=== PATIENT | female | born 1985 | race Caucasian/White ===

== ENCOUNTER 2017-12-24 18:49 | Inpatient (IN) | payer OTHER ==
[2017-12-24] MEDS ORDERED: PANTOPRAZOLE 40 MG/10 ML VIAL IVP STA (19:16)
[2017-12-24] MEDS ORDERED: SODIUM CHLORIDE 0.9% 1,000 ML IV STA ×2 (19:16)
[2017-12-24] MEDS ORDERED: KETOROLAC 30 MG/ML 1 ML VIAL IVP STA (19:16)
[2017-12-24] MEDS: ONDANSETRON 4 MG/2 ML VIAL IVP STA (19:26)
[2017-12-24 19:32] LABS: Basophils % (A) 0 %; Eosinophils # (A) 0.3 k/uL (0-0.7); Eosinophils % (A) 4 %; HCT 42.6 % (34.0-46.0); HGB 14.7 gm/dL (11.4-16.0); Lymphocytes # (A) 1.7 k/uL (1.0-4.8); Lymphocytes % (A) 21 %; MCH 31.2 pg (25.0-35.0); MCHC 34.4 g/dL (31.0-37.0); MCV 90.7 fL (80.0-100.0); Mean Platelet Volume 8.1; Monocytes # (A) 0.4 k/uL (0-1.0); Monocytes % (A) 5 %; Neutrophils # (A) 5.3 k/uL (1.3-7.7); Neutrophils % (A) 68 %; Platelet Count 239 k/uL (150-450); RDW 12.3 % (11.5-15.5); WBC 7.8 k/uL (3.8-10.6)
[2017-12-24 19:38] LABS: Appearance,Urine Cloudy (Clear); Bilirubin,Urine Negative (Negative); Blood,Urine Negative (Negative); Color,Urine Yellow; Glucose,Urine (UA) Negative (Negative); Ketones,Urine Negative (Negative); Leukocyte Esterase,Urine Large (Negative); Mucus,Urine Occasional /hpf; Nitrite,Urine Negative (Negative); Protein,Urine Trace (Negative); RBC,Urine 1 /hpf (0-5); Specific Gravity,Urine 1.016 (1.001-1.035); Squamous Epithelial Cell,Urine 9 /hpf (0-4); WBC,Urine 2 /hpf (0-5)
[2017-12-24 19:41] LABS: Partial Thromboplastin Time 25.2 sec (22.0-30.0); Prothrombin Time 10.1 sec (9.0-12.0)
--- NOTE | 2017-12-24 19:49 | ED ---
Abdominal Pain HPI - General Source: patient, RN notes reviewed, old records reviewed Mode of arrival: ambulatory Limitations: no limitations <Kat Claros - Last Filed: 12/24/17 19:47> <Mickey Graff - Last Filed: 12/24/17 20:38> - General Chief Complaint: Abdominal Pain Stated Complaint: Abdominal pain Time Seen by Provider: 12/24/17 19:04 - History of Present Illness Initial Comments: Patient is a 32-year-old female presents to the emergency Department chief complaint of epigastric abdominal pain. Patient reports that the pain started at noon today. It radiates towards her back. Patient reports been no fever or chills. No nausea or vomiting. She relates she had some diarrhea today. She denies any urinary symptoms. Patient reports that it seems to be right underneath her diaphragm. No chest pain or shortness of breath. Patient denies any recent fever, chills, shortness of breath, chest pain, back pain, abdominal pain, nausea vomiting, numbness or tingling, dysuria or hematuria, constipation or diarrhea, headaches or visual changes, or any other current symptoms ( Kat Claros) - Related Data Home Medications Medication Instructions Recorded Confirmed No Known Home Medications [No 12/24/17 12/24/17 Known Home Medications] Allergies Allergy/AdvReac Type Severity Reaction Status Date / Time amoxicillin Allergy Rash/Hives Verified 12/24/17 19:22 Review of Systems ROS Other: All systems not noted in ROS Statement are negative. <Kat Claros - Last Filed: 12/24/17 19:47> ROS Other: All systems not noted in ROS Statement are negative. <Mickey Graff - Last Filed: 12/24/17 20:38> ROS Statement: Those systems with pertinent positive or pertinent negative responses have been documented in the HPI. Past Medical History Past Medical History: No Reported History History of Any Multi-Drug Resistant Organisms: None Reported Additional Past Surgical History / Comment(s): D&C Past Psychological History: No Psychological Hx Reported Smoking Status: Never smoker Past Alcohol Use History: None Reported Past Drug Use History: None Reported <Kat Claros - Last Filed: 12/24/17 19:47> General Exam Limitations: no limitations <Kat Claros - Last Filed: 12/24/17 19:47> <Mickey Graff - Last Filed: 12/24/17 20:38> - General Exam Comments Initial Comments: Well-appearing 32-year-old female. Alert. No acute distress. General: Well appearing, well nourished, in no distress. Oriented x 3, normal mood and affect . Ambulating without difficulty. Skin: Good turgor, no rash, unusual bruising or prominent lesions Hair: Normal texture and distribution. Pharynx: Mucosa non-inflamed, no tonsillar hypertrophy or exudate Neck: Supple, without lesions, bruits, or adenopathy, thyroid non-enlarged and non-tender Heart: No cardiomegaly or thrills; regular rate and rhythm, no murmur or gallop Lungs: Clear to auscultation and percussion Abdomen: Epigastric abdominal pain and right upper quadrant abdominal pain and palpation. Back: Spine normal without deformity or tenderness, no CVA tenderness Extremities: No amputations or deformities, cyanosis, edema or varicosities, peripheral pulses intact Musculoskeletal: Normal gait and station. No misalignment, asymmetry, crepitation, defects, tenderness, masses, effusions, decreased range of motion, instability, atrophy or abnormal strength or tone in the head, neck, spine, ribs , pelvis or extremities. Neurologic: CN 2-12 normal. Sensation to pain, touch, and proprioception normal. DTRs normal in upper and lower extremities. No pathologic reflexes. Psychiatric: Oriented X3, intact recent and remote memory, judgment and insight , normal mood and affect. (Kat Claros) Vital Signs 12/24/17 19:00 Temperature 98.0 F Pulse Rate 72 Respiratory 20 Rate Blood Pressure 165/87 O2 Sat by Pulse 100 Oximetry Medical Decision Making - Lab Data Result diagrams: 12/24/17 19:20 <Kat Claros - Last Filed: 12/24/17 19:47> - Lab Data Result diagrams: 12/24/17 19:20 12/24/17 19:20 - Radiology Data Radiology results: report reviewed (Ultrasound positive cholecystitis), image reviewed <Mickey Graff - Last Filed: 12/24/17 20:38> - Medical Decision Making 32-year-old female presents today chief complaint of epigastric abdominal pain. Radiates towards the middle of her back. Patient's labwork was obtained. Question gallbladder etiology. Ultrasound obtained. Patient's case will be transferred to Dr. Graff At 7:50 PM. (Kat Claros) 32 female the ER for evaluation of severe bowel pain, positive cholecystitis, will admit for surgical evaluation (Mickey Graff) - Lab Data Lab Results 12/24/17 12/24/17 12/24/17 Range/Units 19:20 19:20 19:20 WBC 7.8 (3.8-10.6) k/uL RBC 4.70 (3.80-5.40) m/uL Hgb 14.7 (11.4-16.0) gm/dL Hct 42.6 (34.0-46.0) % MCV 90.7 (80.0-100.0) fL MCH 31.2 (25.0-35.0) pg MCHC 34.4 (31.0-37.0) g/dL RDW 12.3 (11.5-15.5) % Plt Count 239 (150-450) k/uL Neutrophils % 68 % Lymphocytes % 21 % Monocytes % 5 % Eosinophils % 4 % Basophils % 0 % Neutrophils # 5.3 (1.3-7.7) k/uL Lymphocytes # 1.7 (1.0-4.8) k/uL Monocytes # 0.4 (0-1.0) k/uL Eosinophils # 0.3 (0-0.7) k/uL Basophils # 0.0 (0-0.2) k/uL PT 10.1 (9.0-12.0) sec INR 1.0 (<1.2) APTT 25.2 (22.0-30.0) sec Sodium 143 (137-145) mmol/L Potassium 4.1 (3.5-5.1) mmol/L Chloride 103 (98-107) mmol/L Carbon Dioxide 28 (22-30) mmol/L Anion Gap 12 mmol/L BUN 12 (7-17) mg/dL Creatinine 0.59 (0.52-1.04) mg/dL Est GFR (CKD-EPI)AfAm >90 (>60 ml/min/1.73 sqM) Est GFR (CKD-EPI)NonAf >90 (>60 ml/min/1.73 sqM) Glucose 103 H (74-99) mg/dL Calcium 9.1 (8.4-10.2) mg/dL Total Bilirubin 1.0 (0.2-1.3) mg/dL AST 118 H (14-36) U/L ALT 74 H (9-52) U/L Alkaline Phosphatase 139 H (38-126) U/L Total Protein 7.2 (6.3-8.2) g/dL Albumin 4.3 (3.5-5.0) g/dL Amylase 46 (30-110) U/L Lipase 103 (23-300) U/L Urine Color Urine Appearance (Clear) Urine pH (5.0-8.0) Ur Specific Occidental (1.001-1.035) Urine Protein (Negative) Urine Glucose (UA) (Negative) Urine Ketones (Negative) Urine Blood (Negative) Urine Nitrite (Negative) Urine Bilirubin (Negative) Urine Urobilinogen (<2.0) mg/dL Ur Leukocyte Esterase (Negative) Urine RBC (0-5) /hpf Urine WBC (0-5) /hpf Ur Squamous Epith Cells (0-4) /hpf Urine Mucus (None) /hpf Urine HCG, Qual (Not Detectd) 12/24/17 12/24/17 Range/Units 19:20 19:20 WBC (3.8-10.6) k/uL RBC (3.80-5.40) m/uL Hgb (11.4-16.0) gm/dL Hct (34.0-46.0) % MCV (80.0-100.0) fL MCH (25.0-35.0) pg MCHC (31.0-37.0) g/dL RDW (11.5-15.5) % Plt Count (150-450) k/uL Neutrophils % % Lymphocytes % % Monocytes % % Eosinophils % % Basophils % % Neutrophils # (1.3-7.7) k/uL Lymphocytes # (1.0-4.8) k/uL Monocytes # (0-1.0) k/uL Eosinophils # (0-0.7) k/uL Basophils # (0-0.2) k/uL PT (9.0-12.0) sec INR (<1.2) APTT (22.0-30.0) sec Sodium (137-145) mmol/L Potassium (3.5-5.1) mmol/L Chloride (98-107) mmol/L Carbon Dioxide (22-30) mmol/L Anion Gap mmol/L BUN (7-17) mg/dL Creatinine (0.52-1.04) mg/dL Est GFR (CKD-EPI)AfAm (>60 ml/min/1.73 sqM) Est GFR (CKD-EPI)NonAf (>60 ml/min/1.73 sqM) Glucose (74-99) mg/dL Calcium (8.4-10.2) mg/dL Total Bilirubin (0.2-1.3) mg/dL AST (14-36) U/L ALT (9-52) U/L Alkaline Phosphatase (38-126) U/L Total Protein (6.3-8.2) g/dL Albumin (3.5-5.0) g/dL Amylase (30-110) U/L Lipase (23-300) U/L Urine Color Yellow Urine Appearance Cloudy H (Clear) Urine pH 7.0 (5.0-8.0) Ur Specific Occidental 1.016 (1.001-1.035) Urine Protein Trace H (Negative) Urine Glucose (UA) Negative (Negative) Urine Ketones Negative (Negative) Urine Blood Negative (Negative) Urine Nitrite Negative (Negative) Urine Bilirubin Negative (Negative) Urine Urobilinogen 6.0 (<2.0) mg/dL Ur Leukocyte Esterase Large H (Negative) Urine RBC 1 (0-5) /hpf Urine WBC 2 (0-5) /hpf Ur Squamous Epith Cells 9 H (0-4) /hpf Urine Mucus Occasional H (None) /hpf Urine HCG, Qual Not Detected (Not Detectd) Disposition <Kat Claros - Last Filed: 12/24/17 19:47> <Mickey Graff - Last Filed: 12/24/17 20:38> Clinical Impression: Abdominal pain, Acute cholecystitis Disposition: ADMITTED IP TO THIS HOSP Condition: Fair Referrals: Dominique Hope DO [Primary Care Provider] - 1-2 days
[2017-12-24 19:54] LABS: ALT 74 U/L (9-52); AST 118 U/L (14-36); Albumin 4.3 g/dL (3.5-5.0); Alkaline Phosphatase 139 U/L (38-126); Amylase 46 U/L (30-110); Anion Gap 12 mmol/L; Blood Urea Nitrogen 12 mg/dL (7-17); Calcium 9.1 mg/dL (8.4-10.2); Carbon Dioxide 28 mmol/L (22-30); Chloride 103 mmol/L (98-107); Glucose 103 mg/dL (74-99); Lipase 103 U/L (23-300); Potassium 4.1 mmol/L (3.5-5.1); Sodium 143 mmol/L (137-145); Total Protein 7.2 g/dL (6.3-8.2)
[2017-12-24] MEDS ORDERED: metroNIDAZOLE-NS PMX 500 MG in SALINE 1 100ML.BAG IVPB STA (20:37)
[2017-12-24] MEDS ORDERED: LEVOFLOXACIN 750MG-D5W PMX 750 MG in DEXTROSE/WATER 1 150ML.BAG IVPB STA (20:37)
--- NOTE | 2017-12-24 20:53 | US ---
EXAMINATION TYPE: US gallbladder DATE OF EXAM: 12/24/2017 COMPARISON: NONE CLINICAL HISTORY: Pain. Intermittent upper abdomen and back pain and nausea x couple months, SOB EXAM MEASUREMENTS: Liver Length: 14.7 cm Gallbladder Wall: 0.3 cm CBD: 0.6 cm Right Kidney: 11.3 x 5.0 x 4.9 cm Difficult and limited study due to patient body habitus Pancreas: visualized portions wnl, limited by overlying midline bowel gas Liver: visualized portions appear to have a course echotexture, scanned intercostally, limited by ri b shadowing Gallbladder: The gallbladder is not distended. 1.7cm echogenic shadowing focus, the thickness of the gallbladder wall measures less than 3 mm . Evidence for sonographic Mcdonough's sign: yes CBD: measures less than 6 mm caliber Right Kidney: visualized portions wnl, limited by rib shadowing and overlying bowel gas IMPRESSION: 1. POSITIVE FOR CHOLELITHIASIS. 2. COMMON DUCT TOP NORMAL CALIBER. 3. OVERALL IMPRESSION IS NEGATIVE FOR CHOLECYSTITIS.
--- NOTE | 2017-12-24 21:37 | XR ---
EXAMINATION TYPE: XR KUB 2 views DATE OF EXAM: 12/24/2017 CLINICAL HISTORY: Upper abdominal pain TECHNIQUE: 2 upright views were obtained of the abdomen and pelvis COMPARISON: April 2009 FINDINGS: The visualized lung bases and pleural spaces are negative. There is no pneumoperitoneum. No pneumatosis. Bowel gas pattern is normal. Bones and soft tissues are unremarkable. IMPRESSION: Negative examination.
[2017-12-24 21:56] VITALS: BMI 35.3
[2017-12-25] MEDS: metroNIDAZOLE-NS PMX 500 MG in SALINE 1 100ML.BAG IVPB SCH ×3 (06:04→21:58)
[2017-12-25] MEDS ORDERED: ACETAMINOPHEN IV (For NPO) 1,000 MG in EMPTY BAG 1 BAG IVPB ONE (07:20)
[2017-12-25] MEDS ORDERED: HEPARIN SODIUM,PORCINE 5,000 UNIT/ML 1 ML VIAL SQ STA (07:27)
[2017-12-25 08:42] LABS: Basophils % (A) 0 %; Eosinophils # (A) 0.5 k/uL (0-0.7); Eosinophils % (A) 8 %; HCT 41.7 % (34.0-46.0); Lymphocytes # (A) 1.6 k/uL (1.0-4.8); Lymphocytes % (A) 28 %; MCH 31.1 pg (25.0-35.0); MCHC 33.5 g/dL (31.0-37.0); MCV 92.6 fL (80.0-100.0); Mean Platelet Volume 7.9; Monocytes # (A) 0.3 k/uL (0-1.0); Monocytes % (A) 6 %; Neutrophils # (A) 3.3 k/uL (1.3-7.7); Neutrophils % (A) 58 %; Platelet Count 199 k/uL (150-450); RDW 12.4 % (11.5-15.5); WBC 5.7 k/uL (3.8-10.6)
[2017-12-25 09:01] LABS: ALT 125 U/L (9-52); AST 91 U/L (14-36); Albumin 3.6 g/dL (3.5-5.0); Alkaline Phosphatase 129 U/L (38-126); Anion Gap 8 mmol/L; Blood Urea Nitrogen 8 mg/dL (7-17); Calcium 8.6 mg/dL (8.4-10.2); Carbon Dioxide 24 mmol/L (22-30); Chloride 110 mmol/L (98-107); Glucose 99 mg/dL (74-99); Potassium 4.2 mmol/L (3.5-5.1); Sodium 142 mmol/L (137-145); Total Bilirubin 0.9 mg/dL (0.2-1.3); Total Protein 6.1 g/dL (6.3-8.2)
--- NOTE | 2017-12-25 11:00 | P.HPIM ---
History of Present Illness H&P Date: 12/25/17 Chief Complaint: Abdominal pain Elise Abbasi is a 32-year-old female patient of Dr. Dominique Hope who presented to [facility] on 12/24/2017 with a chief complaint of abdominal pain patient describes a severe epigastric pain radiating to her back associated with nausea but no vomiting she states that she had her symptoms all day long, she stated she had previous similar short episodes in the past but this time the pain was more severe and more prolonged she decided to come to emergency room. She was evaluated in the ER, vital exam reveals patient was afebrile blood pressure was slightly elevated on presentation physical exam revealed abdominal pain and tenderness especially in the right upper quadrant laboratory data were unremarkable suspicious for possible urinary tract infection with positive leukocyte esterase. Abdomen ultrasound was positive for cholelithiasis was large stone measuring 1.7 cm in the gallbladder sonographic Mcdonough sign was positive common bile duct was normal at less then 6 mm caliber. Patient was admitted under Dr. Cramer service and is scheduled for cholecystectomy today. Medical consultation was requested for management while hospitalized. Past medical history: Patient follows with Dr. Dominique Hope in the outpatient setting she denies any significant medical history, at this time she does not take any prescriptions medications, she states that she had gestational diabetes when she was , she states that she was diagnosed with asthma in the remote past but currently she is asymptomatic and does not use any inhalers, her past surgical history is significant for D&C otherwise she denies any surgeries. Social history: Patient does not smoke drink alcohol or use any kind of illicit drugs. Depression screening was done by nursing staff and was positive when questioned further patient stated that she feels that she has depression she will be started on antidepressant post operative. 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 History of Any Multi-Drug Resistant Organisms: None Reported Additional Past Surgical History / Comment(s): D&C Past Anesthesia/Blood Transfusion Reactions: No Reported Reaction Past Psychological History: No Psychological Hx Reported Smoking Status: Never smoker Past Alcohol Use History: None Reported Past Drug Use History: None Reported - Past Family History Mother Family Medical History: Cancer, Hypertension Additional Family Medical History / Comment(s): breast ca Father Family Medical History: Hypertension Medications and Allergies Home Medications Medication Instructions Recorded Confirmed Type No Known Home Medications [No 12/24/17 12/24/17 History Known Home Medications] Allergies Allergy/AdvReac Type Severity Reaction Status Date / Time amoxicillin Allergy Rash/Hives Verified 12/24/17 19:22 Physical Exam Vitals: Vital Signs Temp Pulse Pulse Pulse Resp BP BP 12/25/17 08:00 60 12/25/17 07:30 97.8 F 60 16 130/71 12/25/17 04:01 97.5 F L 75 18 124/90 12/24/17 21:40 97.6 F 76 18 143/91 12/24/17 20:41 97.3 F L 78 18 134/82 12/24/17 19:00 98.0 F 72 20 165/87 Pulse Ox 12/25/17 08:00 12/25/17 07:30 96 12/25/17 04:01 96 12/24/17 21:40 100 12/24/17 20:41 99 12/24/17 19:00 100 Intake and Output 12/24/17 12/25/17 12/25/17 22:59 06:59 14:59 Output Total 800 Balance -800 Output: Urine 800 Other: # Voids 1 Weight 99.2 kg In general patient is alert and oriented 3 in no apparent distress HEENT head normocephalic and atraumatic Neck is supple no JVD no goiter no lymphadenopathy Chest exam is clear to auscultation no crackles no wheezing Cardiac exam reveals regular heart sounds no gallops no murmurs Abdomen is soft with mild tenderness in the epigastric and right upper quadrant area no organomegaly no palpable masses Extremity exam reveals no edema no cyanosis or clubbing Results CBC & Chem 7: 12/25/17 08:31 12/25/17 08:31 Labs: Abnormal Lab Results - Last 24 Hours (Table) 12/24/17 12/24/17 12/25/17 Range/Units 19:20 19:20 08:31 Chloride 110 H (98-107) mmol/L Glucose 103 H (74-99) mg/dL AST 118 H 91 H (14-36) U/L ALT 74 H 125 H (9-52) U/L Alkaline Phosphatase 139 H 129 H (38-126) U/L Total Protein 6.1 L (6.3-8.2) g/dL Urine Appearance Cloudy H (Clear) Urine Protein Trace H (Negative) Ur Leukocyte Esterase Large H (Negative) Ur Squamous Epith Cells 9 H (0-4) /hpf Urine Mucus Occasional H (None) /hpf Thrombosis Risk Factor Assmnt - Choose All That Apply Any of the Below Risk Factors Present?: Yes Each Factor Represents 1 point: Obesity (BMI >25) Thrombosis Risk Factor Assessment Total Risk Factor Score: 1 Thrombosis Risk Factor Assessment Level: Low Risk Assessment and Plan Plan: #1 cholecystitis with cholelithiasis #2 history of gestational diabetes with normal glucose level at this time #3 remote history of asthma stable at this time #4 evidence of depression on nursing staff screening and further questioning. At this time patient is cleared to proceed with surgery Will follow during this admission for medical management Plan to start on Lexapro in a.m.
--- NOTE | 2017-12-25 11:55 | P.HPADDEND ---
H&P Addendum H&P Addendum Date: 12/25/17 Ultrasound of the abdomen reviewed consistent with large symptomatic gallstones and cholecystitis. Will proceed with robotic cholecystectomy.
[2017-12-25] MEDS: SODIUM CHLORIDE 0.9% 1,000 ML IV SCH ×2 (12:25→19:32)
--- NOTE | 2017-12-25 13:53 | P.GSCN ---
History of Present Illness Consult date: 12/25/17 History of present illness: Very pleasant 32-year-old female presented on the day of admission to the emergency room to be evaluated for chief complaint of developing severe epigastric pain radiating across the upper back. Patient stated had a nausea sensation but did not vomit. states she has been experiencing this type pain for the past several months but noted over the last several weeks the incident of having epigastric pain became more frequent. The current episode that prompted the emergency room visit was intolerable. Patient decided to come into the emergency room to be evaluated for the above-mentioned symptoms. Patient did have an ultrasound of the abdomen done in the emergency room was positive for cholelithiasis patient large gallstone measuring 1.7 noted. Common bile duct normal. Subsequently the patient was admitted under the services of the attending. Patient has no significant past medical history. No significant surgical history except for a D&C. Depression screening was done by the nursing staff was positive patient states she feels depressed. Consult for medical management has been obtained. Postoperative patient will be started on an antidepressive drug per recommendations of medicine with the plan the patient will follow-up with her primary care provider Dr. 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 History of Any Multi-Drug Resistant Organisms: None Reported Additional Past Surgical History / Comment(s): D&C Past Anesthesia/Blood Transfusion Reactions: No Reported Reaction Past Psychological History: No Psychological Hx Reported Smoking Status: Never smoker Past Alcohol Use History: None Reported Past Drug Use History: None Reported - Past Family History Mother Family Medical History: Cancer, Hypertension Additional Family Medical History / Comment(s): breast ca Father Family Medical History: Hypertension Medications and Allergies Home Medications Medication Instructions Recorded Confirmed Type No Known Home Medications [No 12/24/17 12/24/17 History Known Home Medications] Allergies Allergy/AdvReac Type Severity Reaction Status Date / Time amoxicillin Allergy Rash/Hives Verified 12/24/17 19:22 Surgical - Exam Vital Signs Temp Pulse Resp BP Pulse Ox 98.0 F 72 20 165/87 100 12/24/17 19:00 12/24/17 19:00 12/24/17 19:00 12/24/17 19:00 12/24/17 19:00 GENERAL APPEARANCE: 32-year-old female patient is alert, oriented, in no acute distress. VITAL SIGNS: Reviewed HEENT: Head is normocephalic and atraumatic. Pupils are equal and reactive. The nares are patent. Oropharynx is clear without lesions. NECK: Supple without lymphadenopathy. Traches midline. HEART: S1, S2. Regular rate and rhythm. Denying chest pain no murmur LUNGS: No crackles or wheezes are heard. Adequate air movement bilaterally ABDOMEN: Soft, mild tenderness right upper quadrant nondistended with good bowel sounds. No peritoneal signs. No palpable organomegaly or masses. EXTREMITIES: Normal skin color and turgor. No cyanosis, rash, ulceration, clubbing or edema. Radial pedal pulses are 2/4 bilaterally. NEUROLOGICAL: No focal deficits. Strength and sensation are grossly intact. Results - Labs 12/25/17 08:31 12/25/17 08:31 Abnormal Lab Results - Last 24 Hours (Table) 12/24/17 12/24/17 12/25/17 Range/Units 19:20 19:20 08:31 Chloride 110 H (98-107) mmol/L Glucose 103 H (74-99) mg/dL AST 118 H 91 H (14-36) U/L ALT 74 H 125 H (9-52) U/L Alkaline Phosphatase 139 H 129 H (38-126) U/L Total Protein 6.1 L (6.3-8.2) g/dL Urine Appearance Cloudy H (Clear) Urine Protein Trace H (Negative) Ur Leukocyte Esterase Large H (Negative) Ur Squamous Epith Cells 9 H (0-4) /hpf Urine Mucus Occasional H (None) /hpf Diabetes panel 12/24/17 12/25/17 Range/Units 19:20 08:31 Sodium 143 142 (137-145) mmol/L Potassium 4.1 4.2 (3.5-5.1) mmol/L Chloride 103 110 H (98-107) mmol/L Carbon Dioxide 28 24 (22-30) mmol/L BUN 12 8 (7-17) mg/dL Creatinine 0.59 0.60 (0.52-1.04) mg/dL Glucose 103 H 99 (74-99) mg/dL Calcium 9.1 8.6 (8.4-10.2) mg/dL AST 118 H 91 H (14-36) U/L ALT 74 H 125 H (9-52) U/L Alkaline Phosphatase 139 H 129 H (38-126) U/L Total Protein 7.2 6.1 L (6.3-8.2) g/dL Albumin 4.3 3.6 (3.5-5.0) g/dL Calcium panel 12/24/17 12/25/17 Range/Units 19:20 08:31 Calcium 9.1 8.6 (8.4-10.2) mg/dL Albumin 4.3 3.6 (3.5-5.0) g/dL Pituitary panel 12/24/17 12/25/17 Range/Units 19:20 08:31 Sodium 143 142 (137-145) mmol/L Potassium 4.1 4.2 (3.5-5.1) mmol/L Chloride 103 110 H (98-107) mmol/L Carbon Dioxide 28 24 (22-30) mmol/L BUN 12 8 (7-17) mg/dL Creatinine 0.59 0.60 (0.52-1.04) mg/dL Glucose 103 H 99 (74-99) mg/dL Calcium 9.1 8.6 (8.4-10.2) mg/dL Adrenal panel 12/24/17 12/25/17 Range/Units 19:20 08:31 Sodium 143 142 (137-145) mmol/L Potassium 4.1 4.2 (3.5-5.1) mmol/L Chloride 103 110 H (98-107) mmol/L Carbon Dioxide 28 24 (22-30) mmol/L BUN 12 8 (7-17) mg/dL Creatinine 0.59 0.60 (0.52-1.04) mg/dL Glucose 103 H 99 (74-99) mg/dL Calcium 9.1 8.6 (8.4-10.2) mg/dL Total Bilirubin 1.0 0.9 (0.2-1.3) mg/dL AST 118 H 91 H (14-36) U/L ALT 74 H 125 H (9-52) U/L Alkaline Phosphatase 139 H 129 H (38-126) U/L Total Protein 7.2 6.1 L (6.3-8.2) g/dL Albumin 4.3 3.6 (3.5-5.0) g/dL Assessment and Plan Assessment: Impression Present on admission right upper quadrant pain suspect due to acute cholecystitis with cholelithiasis Obesity BMI 35 Depressive disorder per nursing staff screening Gestational diabetes with a current normal glucose Mildly elevated AST and ALT Plan Nothing by mouth scheduled for a lap cholecystectomy today Pain control DVT and GI prophylaxis IV Flagyl as ordered IV fluid for hydration Consult medical service for medical management Medicine plans on starting Lexapro in the morning for depression defer to The above impression and plan of care have been discussed and directed by signing physician. Annelise Sainz nurse practitioner acting as scribe for signing physician.
[2017-12-25] MEDS ORDERED: IV FLUID CONTINUATION 1,000 ML IV ONE (13:57)
[2017-12-25] MEDS ORDERED: DEXAMETHASONE SOD PHOSPHATE 10 MG/ML 1 ML VIAL IV ONE (14:18)
[2017-12-25] MEDS: ONDANSETRON 4 MG/2 ML VIAL IVP STA (14:18)
[2017-12-25] MEDS ORDERED: LACTATED RINGERS 1,000 ML IV ONE (15:03)
[2017-12-25] MEDS ORDERED: LIDOCAINE 1% 20 ML VIAL (10MG/ML) FOR IV START INTRADERMA ONE (15:04)
[2017-12-25] MEDS ORDERED: fentaNYL (PF) 50 MCG/ML 2 ML AMP ONE (16:10)
[2017-12-25] MEDS ORDERED: PROPOFOL 10 MG/ML 20 ML VIAL IV ONE (16:10)
[2017-12-25] MEDS ORDERED: LIDOCAINE 1% INJ 10MG/ML (20 ML MDV) ONE (16:10)
[2017-12-25] MEDS ORDERED: INDOCYANINE GREEN 25 MG VIAL IV ONE (16:10)
[2017-12-25] MEDS ORDERED: NEOSTIGMINE 1 MG/ML 10 ML VIAL ONE (16:10)
[2017-12-25] MEDS ORDERED: MIDAZOLAM 2 MG/2 ML VIAL ONE (16:10)
[2017-12-25] MEDS ORDERED: ROCURONIUM BROMIDE 10 MG/ML 10 ML VIAL IV ONE (16:10)
[2017-12-25] MEDS ORDERED: SUCCINYLCHOLINE CHLORIDE 100 MG/5 ML SYR IV ONE (16:10)
[2017-12-25] MEDS ORDERED: GLYCOPYRROLATE 0.2 MG/ML 2 ML VIAL ONE (16:10)
[2017-12-25] MEDS ORDERED: BUPIVACAINE (PF) 0.5% 30 ML VIAL SQ ONE (16:47)
[2017-12-25] MEDS ORDERED: ONDANSETRON 4 MG/2 ML VIAL IVP PRN (17:46)
[2017-12-25] MEDS ORDERED: NALOXONE 0.4 MG/ML 1 ML VIAL IV PRN (17:46)
[2017-12-25] MEDS ORDERED: METOCLOPRAMIDE 5 MG/ML 2 ML VIAL IVP PRN (17:46)
--- NOTE | 2017-12-25 17:46 | P.OP ---
Date of Procedure: 12/25/17 Description of Procedure: SURGEON: ALAN ROMEO MD WAREHOUSE CONSULTANT: STEPHANIE BARTHOLOMEW PREOPERATIVE DIAGNOSES: 1. Acute cholecystitis due to cystic duct obstruction 2. Right upper quadrant abdominal pain. 3. Gastroesophageal reflux disease. 4. Morbid obesity due to excess calories, BMI 35.3 5. Elevated liver enzymes, ALT, AST, alkaline phosphatase POSTOPERATIVE DIAGNOSES: 1. Acute cholecystitis due to cystic duct obstruction 2. Right upper quadrant abdominal pain. 3. Gastroesophageal reflux disease. 4. Morbid obesity due to excess calories, BMI 35.3 5. Elevated liver enzymes, ALT, AST, alkaline phosphatase 6. Fatty liver with hepatomegaly OPERATION: Robotic-assisted da Yun Xi laparoscopic cholecystectomy, multiport with FIREFLY ESTIMATED BLOOD LOSS: 10 mL. SPECIMENS REMOVED: Gallbladder. COMPLICATIONS: None. OPERATIVE FINDINGS: 1. Acute on chronic cholecystitis with large over 2 cm gallstone 2. Fatty liver with hepatomegaly INDICATIONS: The patient is a 32-year-old female who presents with acute cholelcystitis. Surgical intervention with a laparoscopic cholecystectomy was described at length including injury to the biliary tree, bleeding, infection, need for further surgery. Informed consent was obtained. Robotic assisted laparoscopic approach was described. Benefits and risks of the procedure including but not limited to bleeding, infection, injury to the biliary tree was described. Informed consent was obtained. DESCRIPTION OF PROCEDURE: Patient was brought to the operating room, placed in supine position. After general induction, the abdomen had been prepped and draped in standard sterile fashion. The robotic da Yun XI system was primed. After a timeout protocol was performed, the patient had been prepped and draped in standard sterile fashion. The patient was injected with indocyanine green. The robot was docked along the left lateral abdomen. The patient was repositioned in reverse Trendelenburg position. Please note prior to docking of the robot; however, a 5 mm 0 degrees laparoscopic trocar entry was performed along the left upper quadrant. Next, two 8 mm robotic ports were placed along the right upper abdomen. The camera 8-mm port was maintained along the epigastrium. Another 8 mm port was placed along the left upper abdominal wall after exchanging the 5 mm port. Please note that the ports were placed at least 10 to 15 cm away from the target anatomy of the gallbladder. Using a grasper for arm 3, a grasper for arm 2, including hook cautery for arm 1 , the robotic system was docked and primed as described. Instruments were interchanged by the assistant warehouse manager including hook cautery, Bovie cautery and clip appliers. I had sat at the console. Adhesions were identified along the infundibulum of the gallbladder and addressed using hook cautery. The gallbladder fundus was retracted over the dome of the liver. Initial attention was brought to the infundibulum which was gently retracted in the inferior lateral approach. Using a grasper, the cystic duct including the cystic artery was carefully skeletonized. FIREFLY was used to identify the cystic artery and cystic structures. Using a clip provider education specialist 2 large PLASTIC clips were placed proximally, and 1 clip was placed distally along the cystic duct and then cauterized with the cautery. Again care was taken to avoid any injury to the biliary tree as the common bile duct was clearly visualized during this portion of dissection. Next, the cystic artery was cauterized. Electro-Bovie cautery was used to remove the gallbladder from the hepatic fossa. Hemostasis was checked and found to be adequate. The robot was undocked. I re-scrubbed into the case. Using a 10 mm Endo Catch bag via the left upper quadrant incision, the specimen was removed from the abdominal cavity. All pneumoperitoneum instruments were evacuated from the abdominal cavity. The incisions were reapproximated using 4-0 Monocryl in an interrupted subcuticular fashion. Clark-Maryuri and 0 Vicryl is used to close the left upper quadrant port site. Please note along the trocar sites, local anesthetic was placed as a field block prior to insertion of all instruments. Dermabond was applied to the skin. At the end of the procedure needle, sponge, and instrument count had been verified correct by the surgical technologist. The patient was transferred to postanesthesia care unit in stable condition. Intraoperative films were shared with the patient's family who were very pleased with the level of care. Console time 19 minutes
[2017-12-25] MEDS: fentaNYL (PF) 50 MCG/ML 2 ML AMP IV ONE ×2 (18:01→18:15)
[2017-12-25] MEDS ORDERED: HYDROmorphone 0.5 MG/0.5 ML SYRINGE IVP ONE (18:50)
[2017-12-25] MEDS: MORPHINE SULFATE 4 MG/ML SYRINGE IVP PRN ×2 (19:32→23:11)
[2017-12-25] MEDS ORDERED: LEVOFLOXACIN 750MG-D5W PMX 750 MG in DEXTROSE/WATER 1 150ML.BAG IVPB SCH (20:00)
[2017-12-25] MEDS: KETOROLAC 30 MG/ML 1 ML VIAL IVP PRN (20:41)
[2017-12-26] MEDS: MORPHINE SULFATE 4 MG/ML SYRINGE IVP PRN (03:15)
[2017-12-26 04:44] VITALS: RESP 16
[2017-12-26] MEDS: metroNIDAZOLE-NS PMX 500 MG in SALINE 1 100ML.BAG IVPB SCH (05:19)
[2017-12-26] MEDS: HYDROcodone/APAP 5-325MG 1 EACH TAB PO PRN ×2 (05:29→13:00)
[2017-12-26 07:35] LABS: ALT 108 U/L (9-52); AST 43 U/L (14-36); Albumin 3.7 g/dL (3.5-5.0); Alkaline Phosphatase 120 U/L (38-126); Anion Gap 13 mmol/L; Blood Urea Nitrogen 6 mg/dL (7-17); Calcium 8.9 mg/dL (8.4-10.2); Carbon Dioxide 23 mmol/L (22-30); Chloride 104 mmol/L (98-107); Glucose 102 mg/dL (74-99); Potassium 4.4 mmol/L (3.5-5.1); Sodium 140 mmol/L (137-145); Total Protein 6.3 g/dL (6.3-8.2)
[2017-12-26] MEDS: KETOROLAC 30 MG/ML 1 ML VIAL IVP PRN (08:24)
[2017-12-26] MEDS: SODIUM CHLORIDE 0.9% 1,000 ML IV SCH (08:50)
[2017-12-26] MEDS ORDERED: ENOXAPARIN 40 MG/0.4 ML SYRINGE SQ SCH (09:00)
[2017-12-26 11:39] VITALS: BP 114/75; PULSE 76; TEMP 98.3
--- NOTE | 2017-12-26 11:43 | P.PN ---
Subjective Progress Note Date: 12/26/17 Principal diagnosis: Cholecystitis Patient is s/p cholecystectomy. No nausea or vomiting. She complains of appropriate left upper quadrant pain considering the significant size of her gallstone over 2 cm in size. She complains of right upper quadrant soreness and is appropriate. She is tolerating diet. Blood work has moderately improved for her LFTs. Objective - Vital Signs Vital signs: Vital Signs Temp 98.2 F 12/26/17 07:53 Pulse 86 12/26/17 07:53 Resp 16 12/26/17 07:53 BP 126/80 12/26/17 07:53 Pulse Ox 95 12/26/17 07:53 Intake & Output 12/25/17 12/26/17 12/26/17 18:59 06:59 18:59 Intake Total 1100 590 Output Total 510 2200 Balance 590 -1610 Intake: IV 1100 150 Levofloxacin 750Mg-D5w 150 Pmx 750 mg In Dextrose/ Water 1 150ml.bag @ 100 mls/hr IVPB Q24H [facility] Rx#: [id number] Intake, IV Titration 200 Amount metroNIDAZOLE-NS PMX 500 200 mg In Saline 1 100ml.bag @ 100 mls/hr IVPB Q8H [facility] Rx#:[id number] Oral 240 Output: Urine 500 2200 Estimated Blood Loss 10 Other: # Voids 1 300 1 - Exam ABDOMEN: Soft, nondistended. Incisions well approximated. No signs of infection. Appropriate post-incisional tenderness of the left upper quadrant and right upper quadrant. No jaundice. - Labs CBC & Chem 7: 12/25/17 08:31 12/26/17 06:49 Labs: Abnormal Lab Results - Last 24 Hours (Table) 12/26/17 Range/Units 06:49 BUN 6 L (7-17) mg/dL Glucose 102 H (74-99) mg/dL AST 43 H (14-36) U/L ALT 108 H (9-52) U/L Assessment and Plan (1) Gallstones and inflammation of gallbladder with obstruction Current Visit: Yes Status: Acute Code(s): K80.19 - CALCULUS OF GALLBLADDER W OTH CHOLECYSTITIS WITH OBSTRUCTION SNOMED Code(s): 02362052 (2) Morbidly obese Current Visit: Yes Status: Acute Code(s): E66.01 - MORBID (SEVERE) OBESITY DUE TO EXCESS CALORIES SNOMED Code(s): 961552273 (3) BMI 35.0-35.9,adult Current Visit: Yes Status: Acute Code(s): Z68.35 - BODY MASS INDEX (BMI) 35.0-35.9, ADULT SNOMED Code(s): 104568247 (4) Depressive disorder Current Visit: Yes Status: Acute Code(s): F32.9 - MAJOR DEPRESSIVE DISORDER , SINGLE EPISODE, UNSPECIFIED SNOMED Code(s): 17704943 (5) Acute cholecystitis Current Visit: Yes Status: Acute Code(s): K81.0 - ACUTE CHOLECYSTITIS SNOMED Code(s): 18412012 (6) Elevated liver function tests Current Visit: Yes Status: Acute Code(s): R79.89 - OTHER SPECIFIED ABNORMAL FINDINGS OF BLOOD CHEMISTRY SNOMED Code(s): 559878159 Plan: 1. Low fat diet. 2. Surgical post-discharge instructions reviewed. 3. Pain should improve daily. 4. Discharge recommendations as per primary team.
--- NOTE | 2017-12-26 12:49 | P.DS ---
Providers Date of admission: 12/24/17 20:38 Expected date of discharge: 12/26/17 Attending physician: Christopher Snider Consults: 12/25/17 09:40 Consult Physician Urgent Consulting Provider: Christopher Snider Consult Reason/Comments: Medical management Do you want consulting provider notified?: Yes 12/25/17 14:02 Consult Physician Routine Consulting Provider: Nirali Cramer Consult Reason/Comments: acute cholelithiasis Do you want consulting provider notified?: Already Contacted Primary care physician: Dominique Hope [facility] Course: Diagnosis on discharge #1 cholecystitis with cholelithiasis #2 history of gestational diabetes with normal glucose level at this time #3 remote history of asthma stable at this time #4 evidence of depression on nursing staff screening and on further questioning. Patient was started on Lexapro 10 mg by mouth daily Hospital course Elise Abbasi is a 32-year-old female patient of Dr. Dominique Hope who presented to [facility] on 12/24/2017 with a chief complaint of abdominal pain patient describes a severe epigastric pain radiating to her back associated with nausea but no vomiting she states that she had her symptoms all day long, she stated she had previous similar short episodes in the past but this time the pain was more severe and more prolonged she decided to come to emergency room. She was evaluated in the ER, vital exam reveals patient was afebrile blood pressure was slightly elevated on presentation physical exam revealed abdominal pain and tenderness especially in the right upper quadrant laboratory data were unremarkable suspicious for possible urinary tract infection with positive leukocyte esterase. Abdomen ultrasound was positive for cholelithiasis was large stone measuring 1.7 cm in the gallbladder sonographic Mcdonough sign was positive common bile duct was normal at less then 6 mm caliber. Patient was admitted under Dr. Cramer service and is scheduled for cholecystectomy today. Medical consultation was requested for management while hospitalized. Patient was admitted to medical floor she was seen by Dr. Nirali Cramer, she underwent a robotic-assisted laparoscopic cholecystectomy, patient did well postprocedure, she was able to tolerate diet well, she was cleared for discharge by surgery on 12/26/2017 Patient Condition at Discharge: Fair Plan - Discharge Summary New Discharge Prescriptions: New Escitalopram Oxalate [Lexapro] 10 mg PO DAILY #30 tab HYDROcodone/APAP 7.5-325MG [[place] 7.5-325] 1 tab PO Q8H PRN 7 Days #21 tab PRN Reason: Pain Discharge Medication List Escitalopram Oxalate [Lexapro] 10 mg PO DAILY #30 tab 12/26/17 [Rx] HYDROcodone/APAP 7.5-325MG [[place] 7.5-325] 1 tab PO Q8H PRN 7 Days #21 tab 12/26 [Rx] Follow up Appointment(s)/Referral(s): Nirali Cramer MD [STAFF PHYSICIAN] - 12/31/17 Dominique Hope DO [Primary Care Provider] - 1-2 days Patient Instructions/Handouts: Low Fat Diet (DC), Laparoscopic Cholecystectomy (DC) Activity/Diet/Wound Care/Special Instructions: No lifting of 4 pounds 2 weeks. May shower. No bath tub soaks. Discharge Disposition: HOME SELF-CARE
== END 2017-12-26 13:25 | disposition home or self-care (01) | DRG 419 ==
LOC: EC 18:49 → OBSVTOIN 20:38 → INTOOBSV 20:38 → 6PED 20:38
PROVIDERS: ADMIT Internal Medicine; ATTEND Internal Medicine
PROC: 0FT44ZZ Resection of Gallbladder, Percutaneous Endoscopic Approach (ICD-10-PCS; principal; 2017-12-25 09:35)
PROC: 8E0W4CZ Robotic Assisted Procedure of Trunk Region, Percutaneous Endoscopic Approach (ICD-10-PCS; principal; 2017-12-25 09:35)
DX: K80.13 Calculus of gallbladder with acute and chronic cholecystitis with obstruction (principal); F32.9 Major depressive disorder, single episode, unspecified; H91.92 Unspecified hearing loss, left ear; J45.909 Unspecified asthma, uncomplicated; K21.9 Gastro-esophageal reflux disease without esophagitis; E66.01 Morbid (severe) obesity due to excess calories; R16.0 Hepatomegaly, not elsewhere classified; K76.0 Fatty (change of) liver, not elsewhere classified; Z68.35 Body mass index [BMI] 35.0-35.9, adult; Z82.49 Family history of ischemic heart disease and other diseases of the circulatory system; Z88.0 Allergy status to penicillin; Z80.3 Family history of malignant neoplasm of breast
CPT/HCPCS: 36415; 74018; 76705; 80053; 81001; 81025; 82150; 83690; 85025; 85610; 85730; 88304; 96361; 96365; 96375; 99285

== ENCOUNTER 2018-05-13 18:56 | Emergency (ER) | payer OTHER ==
[2018-05-13 19:02] VITALS: BP 115/66; PULSE 68; RESP 18; TEMP 98.7
--- NOTE | 2018-05-13 19:33 | XR ---
EXAMINATION TYPE: XR finger LT DATE OF EXAM: 05/13/2018 COMPARISON: NONE HISTORY: Injury and pain TECHNIQUE: 3 views FINDINGS: There is slightly impacted transverse fracture of the base of the tarsal phalanx little fin cristina left hand. There is no dislocation. Joint spaces are normal. IMPRESSION: Fracture of the occipital phalanx little finger left hand as above.
--- NOTE | 2018-05-13 19:38 | ED ---
Upper Extremity HPI - General Chief Complaint: Extremity Injury, Upper Stated Complaint: ihs - left pinkie injury Time Seen by Provider: 05/13/18 19:04 Source: patient, RN notes reviewed Mode of arrival: ambulatory Limitations: no limitations - History of Present Illness Initial Comments: This is a 33-year-old female who presents to the emergency department with chief complaint of work-related left pinky injury. Patient states that hour ago she tripped and fell at work. Patient states that she has pain to the left pinky. She states that she has difficulty flexing the joints of the finger. She denies any other injuries or trauma. States that she did apply ice immediately. Denies recent fevers or chills, chest pain or shortness of breath , abdominal pain, nausea or vomiting, numbness or tingling. - Related Data Previous Rx's Medication Instructions Recorded Escitalopram Oxalate [Lexapro] 10 mg PO DAILY #30 tab 12/26/17 HYDROcodone/APAP 7.5-325MG [[place] 1 tab PO Q8H PRN 7 Days #21 tab 12/26/17 7.5-325] Allergies Allergy/AdvReac Type Severity Reaction Status Date / Time amoxicillin Allergy Rash/Hives Verified 05/13/18 19:00 Review of Systems ROS Statement: Those systems with pertinent positive or pertinent negative responses have been documented in the HPI. ROS Other: All systems not noted in ROS Statement are negative. 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 History of Any Multi-Drug Resistant Organisms: None Reported Additional Past Surgical History / Comment(s): D&C Past Anesthesia/Blood Transfusion Reactions: No Reported Reaction Past Psychological History: No Psychological Hx Reported Smoking Status: Never smoker Past Alcohol Use History: None Reported Past Drug Use History: None Reported - Past Family History Mother Family Medical History: Cancer, Hypertension Additional Family Medical History / Comment(s): breast ca Father Family Medical History: Hypertension General Exam - General Exam Comments Initial Comments: General: Awake and alert, well-developed; in no apparent distress. HEENT: Head atraumatic, normocephalic. Pupils are equal, round and reactive to light. Extraocular movements intact. Oropharynx moist without erythema or exudate. Neck: Supple. Normal ROM. Cardiovascular: Regular rate and rhythm. No murmurs, rubs or gallops. Chest symmetrical. Respiratory: Lungs clear to auscultation bilaterally. No wheezes, rales or rhonchi. Normal respiratory effort with no use of accessory muscles. Musculoskeletal: Limited range of motion of the left pinky due to pain. Pinky is in an abducted position. There is generalized soft tissue swelling and ecchymosis proximal left pinky with tenderness. No MCP or PIP joint tenderness. Sensation is intact. Radial pulses are 2+ equal and palpable bilaterally. Skin: [place], warm and dry without rashes or lesions. Neurological: Alert and oriented x3. CN II-XII grossly intact. Speech is fluent and answers are appropriate. No focal neuro deficits. Psychiatric: Normal mood and affect. No overt signs of depression or anxiety noted. Limitations: no limitations Course Vital Signs 05/13/18 19:00 Temperature 98.7 F Pulse Rate 68 Respiratory 18 Rate Blood Pressure 115/66 O2 Sat by Pulse 100 Oximetry Procedures - Orthopedic Fracture Reduction Fracture #1 Consent Obtained: verbal consent Time Out Performed: Yes Side: left Fracture Reduction Location: finger (5th finger) Analgesia: digital block Technique: direct manipulation, traction/counter-traction Post-Reduction Neuro Exam: intact Post-Reduction Vascular Exam: intact Splint Applied: Yes (finger splint and taty tape) Patient Tolerated Procedure: well, no complications Medical Decision Making - Medical Decision Making This is a 33-year-old female who presents to the emergency department with chief complaint of left finger injury. Patient sustained a fracture to the proximal phalanx of the left pinky finger. Case was discussed with attending physician, Dr. Copeland. Attempt at fracture reduction was made as patient's finger was in an abduction position. Digital block was used. Several attempts were made at reduction however no significant changes resulted. Finger splint and taty tape applied. Patient tolerated well without complication. She is neurovascularly intact. Recommended following up with orthopedics in the morning. Patient is in agreement with plan and voices understanding. All questions were answered. - Radiology Data Radiology results: report reviewed, image reviewed X-ray left finger findings: There is slightly impacted transverse fracture of the base of the proximal phalanx little finger left hand. There is no dislocation. Joint spaces are normal. Impression: Fracture of the proximal phalanx little finger left hand. As read by Dr. Cornelius. Disposition Clinical Impression: Finger fracture Disposition: HOME SELF-CARE Condition: Good Instructions: Finger Fracture (ED) Additional Instructions: As discussed, please follow-up with orthopedics in the morning. May take Tylenol or ibuprofen as needed for pain. Please rest, ice and elevate. Please follow up with primary care provider within 1-2 days. Return to emergency department if symptoms should worsen or any concerns arise. Is patient prescribed a controlled substance at d/c from ED?: No Referrals: Dominique Hope DO [Primary Care Provider] - 1-2 days Jim Ellis MD [Medical Doctor] - 1-2 days Time of Disposition: 19:55
== END 2018-05-13 20:09 | disposition home or self-care (01) ==
LOC: EC 18:56
DX: S62.617A Displaced fracture of proximal phalanx of left little finger, initial encounter for closed fracture (principal); H90.42 Sensorineural hearing loss, unilateral, left ear, with unrestricted hearing on the contralateral side; Z88.0 Allergy status to penicillin; W01.0XXA Fall on same level from slipping, tripping and stumbling without subsequent striking against object, initial encounter; Y92.69 Other specified industrial and construction area as the place of occurrence of the external cause; Y99.0 Civilian activity done for income or pay
CPT/HCPCS: 26725; 99283

== ENCOUNTER 2020-03-02 10:04 | Outpatient (CLI) | payer OTHER ==
[2020-03-02 10:39] LABS: Basophils % (A) 0 %; Eosinophils # (A) 0.3 k/uL (0-0.7); Eosinophils % (A) 3 %; HCT 40.3 % (34.0-46.0); HGB 13.3 gm/dL (11.4-16.0); Lymphocytes # (A) 2.3 k/uL (1.0-4.8); Lymphocytes % (A) 27 %; MCH 31.6 pg (25.0-35.0); MCHC 32.9 g/dL (31.0-37.0); Mean Platelet Volume 8.8; Monocytes # (A) 0.4 k/uL (0-1.0); Monocytes % (A) 4 %; Neutrophils # (A) 5.4 k/uL (1.3-7.7); Neutrophils % (A) 64 %; Platelet Count 172 k/uL (150-450); RDW 12.4 % (11.5-15.5); WBC 8.5 k/uL (3.8-10.6)
[2020-03-02 10:44] LABS: Appearance,Urine Cloudy (Clear); Bacteria,Urine Rare /hpf; Bilirubin,Urine Negative (Negative); Blood,Urine Negative (Negative); Color,Urine Yellow; Glucose,Urine (UA) Negative (Negative); Ketones,Urine Negative (Negative); Leukocyte Esterase,Urine Large (Negative); Mucus,Urine Few /hpf; Nitrite,Urine Negative (Negative); Protein,Urine Negative (Negative); RBC,Urine 2 /hpf (0-5); Specific Gravity,Urine 1.018 (1.001-1.035); Squamous Epithelial Cell,Urine 6 /hpf (0-4); Urobilinogen,Urine <2.0 mg/dL (<2.0); WBC,Urine 29 /hpf (0-5)
[2020-03-02 11:10] LABS: ALT 15 U/L (4-34); AST 14 U/L (14-36); African American GFR (CKD) >90 (>60 ml/min/1.73 sqM); Blood Urea Nitrogen 7 mg/dL (7-17); LDH 278 U/L (313-618); Non-African American GFR(CKD) >90 (>60 ml/min/1.73 sqM); Uric Acid 3.5 mg/dL (3.7-7.4)
[2020-03-02 12:02] LABS: Protein/Creatinine Ratio,Urine 0.078
--- NOTE | 2020-03-06 17:26 | P.MSEPDOC ---
Presenting Problems - Arrival Data Date of Arrival on Unit: 03/02/20 Time of Arrival on Unit: 10:04 Mode of Transport: Ambulatory - Complaint OB-Reason for Admission/Chief Complaint: PIH Comment: pt sent over from the office with written orders by Dr. Barkley for PIH workup Medical History - Information : 3 Para: 2 Term: 2 : 0 Abortions: Spontaneous or Elective: 0 Number of Living Children: 2 - Gestational Age Gestational Age by NICHOL (wks/days): 38 Weeks and 2 Days - History Complications: No Care Review of Systems - Review of Systems Constitutional: No problems Breast: No problems ENT: No problems Cardiovascular: No problems Respiratory: No problems Gastrointestinal: No problems Genitourinary: No problems Musculoskeletal: No problems Neurological: No problems Skin: No problems Physician Notification (Pre) - Physician Notified Physician/Practitioner Notifed:: angela Spoke With: angela - Notification Comment Comment: Dr. Barkley notified of lab results, orders to discharge pt home Disposition - Disposition OB Disposition: Discharge to home I agree with the RN Medical Screening Exam: Yes Risk & Benefit of care provided described in d/c instruction: Yes Diagnosis: GESTATIONAL HTN W/O SIGNIFICANT PROTEINURIA, THIRD TRIMESTER
== END 2020-03-02 11:30 | disposition home or self-care (01) ==
LOC: FBPOP 10:04
PROVIDERS: ATTEND Obstetrics & Gynecology
DX: O13.3 Gestational [pregnancy-induced] hypertension without significant proteinuria, third trimester (principal); Z3A.38 38 weeks gestation of pregnancy
CPT/HCPCS: 59025; 81001; 82565; 82570; 83615; 84156; 84450; 84460; 84520; 84550; 85025

== ENCOUNTER 2020-03-03 19:40 | Inpatient (IN) | payer OTHER ==
[2020-03-03] MEDS ORDERED: OXYTOCIN 10 UNIT/ML 1 ML VIAL IM PRN (19:54)
[2020-03-03] MEDS ORDERED: CARBOPROST TROMETHAMINE 250 MCG/ML 1 ML AMP IM PRN (19:54)
[2020-03-03] MEDS ORDERED: LIDOCAINE 0.5% (PF) 5 MG/ML (50 ML SDV) SQ PRN (19:54)
[2020-03-03] MEDS ORDERED: METHYLERGONOVINE 0.2 MG/ML 1 ML AMP IM PRN (19:54)
[2020-03-03] MEDS ORDERED: TERBUTALINE 1 MG/ML VIAL SQ PRN (19:54)
[2020-03-03] MEDS ORDERED: LACTATED RINGERS 1,000 ML IV SCH (20:00)
[2020-03-03 20:26] LABS: Basophils % (A) 0 %; Eosinophils # (A) 0.2 k/uL (0-0.7); Eosinophils % (A) 2 %; HCT 42.1 % (34.0-46.0); Lymphocytes # (A) 1.3 k/uL (1.0-4.8); Lymphocytes % (A) 10 %; MCH 31.8 pg (25.0-35.0); MCHC 33.4 g/dL (31.0-37.0); MCV 95.3 fL (80.0-100.0); Mean Platelet Volume 9.7; Monocytes # (A) 0.5 k/uL (0-1.0); Monocytes % (A) 3 %; Neutrophils # (A) 11.5 k/uL (1.3-7.7); Neutrophils % (A) 84 %; Platelet Count 182 k/uL (150-450); RBC 4.41 m/uL (3.80-5.40); RDW 12.5 % (11.5-15.5); WBC 13.7 k/uL (3.8-10.6)
--- NOTE | 2020-03-03 20:45 | P.HPOB ---
History of Present Illness H&P Date: 03/03/20 Chief Complaint: Contractions This patient is a 35-year-old 3 para 2 female estimated date of confinement 03/14/2020 estimated gestational age 38-3/7 weeks who presents to labor and delivery with complaint of contractions. Patient was seen by Dr. Barkley the office yesterday and had an elevated blood pressure was sent to labor and delivery for evaluation of preeclampsia. Evaluation of that time was negative. Patient states she began having contractions were strong about 5:00 this evening is now 6 cm dilated in active labor. care is complicated by advanced maternal age. It appears she declined maternal medicine evaluation as well as first trimester free cell DNA testing. 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 History of Any Multi-Drug Resistant Organisms: None Reported Additional Past Surgical History / Comment(s): D&C; patient LEEP done of the cervix Past Anesthesia/Blood Transfusion Reactions: No Reported Reaction Smoking Status: Never smoker - Past Family History Mother Family Medical History: Cancer, Hypertension Additional Family Medical History / Comment(s): breast ca Father Family Medical History: Hypertension Medications and Allergies Home Medications Medication Instructions Recorded Confirmed Type Pnv No.95/Ferrous Fum/Folic AC 1 each PO DAILY 03/02/20 03/03/20 History [ Multivitamin Tablet] Allergies Allergy/AdvReac Type Severity Reaction Status Date / Time amoxicillin Allergy Rash/Hives Verified 03/03/20 19:45 Penicillins Allergy Rash/Hives Verified 03/03/20 19:45 Exam Intake and Output 03/03/20 03/03/20 03/03/20 06:59 14:59 22:59 Other: Weight 101.151 kg - OBG Physical Exam Abdomen: bowel sounds normal, no diffuse tenderness, no bruit present, no guarding noted, no hepatomegaly, no splenomegaly, no mass Vulva: both: normal Vagina: normal moisture, no discharge Cervix: no lesion (Cervix is 6 cm dilated completely effaced and -1 station.), no discharge Uterus: enlarged (Fundal height in the office was 40 cm) Results blood work shows she is O positive, rubella equivocal, RPR is nonreac tive hepatitis B was negative HIV is nonreactive, group B strep was positive, last growth ultrasound was done on January 29 showed the baby at the 64th percentile. Result Diagrams: 03/03/20 20:10 Abnormal Lab Results - Last 24 Hours (Table) 03/03/20 Range/Units 20:10 WBC 13.7 H (3.8-10.6) k/uL Neutrophils # 11.5 H (1.3-7.7) k/uL Assessment and Plan Assessment: This is a 35-year-old 3 para 2 female 38-3/7 weeks' gestation in active labor. Patient is a positive group B strep culture. Patient reports a rash to penicillin, therefore were going to give her Ancef. She understands that if her labor does not extend beyond 4 hours baby will need to be drawn. At this point were anticipating vaginal delivery. (1) 38 weeks gestation of Current Visit: Yes Status: Acute Code(s): Z3A.38 - 38 WEEKS GESTATION OF SNOMED Code(s): 92807117 (2) Normal labor Current Visit: Yes Status: Acute Code(s): O80 - ENCOUNTER FOR FULL-TERM UNCOMPLICATED DELIVERY; Z37.9 - OUTCOME OF DELIVERY, UNSPECIFIED SNOMED Code(s): 69689733 (3) Group B streptococcal carriage complicating Current Visit: Yes Status: Acute Code(s): O99.820 - STREPTOCOCCUS B CARRIER STATE COMPLICATING SNOMED Code(s): 328371776520057
--- NOTE | 2020-03-03 21:09 | P.PROBDLV ---
Vaginal Delivery Note - . Vaginal Delivery Note: Normal spontaneous vaginal delivery viable male infant Apgars 9 and 9 delivery time is 7 hrs. Please see dictated H&P for intimate details of this patient's admission. Brief summary this is a 35-year-old 3 para 2 female 38-3/7 weeks gestation who is admitted to labor and delivery with complaints of contractions. On admission patient is 6 cm dilated and in active labor. She is given Ancef due to a penicillin ALLERGY and a positive strep culture. Patient is artificial rupture membranes for clear fluid and does not request anything for pain control. Patient quickly gets to complete and then uncontrollably pushes the head over the perineum in the bed. She then continues to push and I controlled delivery of the rest of this infant's body. This is a vigorous viable male infant Apgars are 9 and 9 delivery time is 2057 hrs. has spontaneous respirations and good cry and grossly appears normal. Umbilical cord is doubly clamped and cut. Does appear quite small. The placenta is then spontaneously delivered intact. There is only superficial posterior laceration does not require any repair. and mother are stable delivery room. Cord blood was obtained due to O positive status.
[2020-03-03] MEDS ORDERED: diphenhydrAMINE 25 MG CAP PO PRN (21:10)
[2020-03-03] MEDS ORDERED: HYDROCORTISONE 2.5% RECTAL CREAM 30 GM TUBE RECTAL PRN (21:10)
[2020-03-03] MEDS ORDERED: diphenhydrAMINE 50 MG/ML 1 ML VIAL IVP PRN (21:10)
[2020-03-03] MEDS ORDERED: MEASLES-MUMPS-RUBELLA VACC/PF 12,500 UNIT/0.5 ML VIAL SQ ONE (21:10)
[2020-03-03] MEDS ORDERED: bisacodyL 10 MG SUPP RECTAL PRN (21:10)
[2020-03-03] MEDS ORDERED: LANOLIN CREAM 5 GM TUBE TOPICAL PRN (21:10)
[2020-03-03] MEDS ORDERED: SIMETHICONE 80 MG CHEWABLE PO PRN (21:10)
[2020-03-03] MEDS ORDERED: ZOLPIDEM 5 MG TAB PO PRN (21:10)
[2020-03-03] MEDS ORDERED: ACETAMINOPHEN TAB 325 MG TAB PO PRN (21:10)
[2020-03-03] MEDS ORDERED: BENZOCAINE/MENTHOL SPRAY 1 GM/SPRAY AEROSOL TOPICAL PRN (21:10)
[2020-03-03] MEDS: OXYTOCIN 20 UNITS/1000 ML NS 1,000 ML IV SCH ×2 (21:20→21:51)
[2020-03-03 22:41] VITALS: RESP 16
--- NOTE | 2020-03-04 07:22 | P.PNOBGVD ---
Subjective - Subjective Patient reports: Reports appetite normal, Reports voiding normally, Reports pain well controlled, Reports ambulating normally : doing well Objective - Latest Vital Signs Latest vital signs: Vital Signs Temp Pulse Resp BP Pulse Ox 03/04/20 06:42 77 16 119/77 100 03/04/20 03:48 98.5 F 89 16 138/84 96 03/04/20 00:00 97.6 F 84 16 134/78 97 03/03/20 23:15 83 16 132/81 03/03/20 22:45 81 128/73 03/03/20 22:15 84 121/73 03/03/20 22:00 85 136/81 03/03/20 21:45 92 141/87 03/03/20 21:30 96 16 139/85 03/03/20 21:15 98.0 F 95 16 129/72 99 03/03/20 19:53 96.7 F L 86 16 140/90 99 Intake and Output 03/03/20 03/04/20 03/04/20 22:59 06:59 14:59 Intake Total 64.583 Output Total 100 Balance -35.417 Intake: Intake, IV Titration 64.583 Amount Oxytocin 20 Units/1000 ml 64.583 Ns 1,000 ml @ Per Protocol IV .Q0M [facility] Rx#: [id number] Output: Estimated Blood Loss 100 Other: # Voids 1 Weight 101.151 kg - Exam Lungs: bilateral: normal Chest: Normal S1, Normal S2 Extremities: Present: normal Abdomen: Present: normal appearance, soft Uterus: Present: normal, firm - Labs Labs: Abnormal Lab Results - Last 24 Hours (Table) 03/03/20 Range/Units 20:10 WBC 13.7 H (3.8-10.6) k/uL Neutrophils # 11.5 H (1.3-7.7) k/uL Assessment and Plan Assessment: day #1. Patient is resting without complaints. Vital signs are stable she is afebrile. Uterus firm and nontender. I did give her 1 dose of Methergine immediately after delivery secondary to some mild atony however her bleeding has seemed to be normal overnight. CBC is pending at time of this dictation. Plan today is to continue routine care. Discharge home tomorrow. (1) 38 weeks gestation of Current Visit: Yes Status: Acute Code(s): Z3A.38 - 38 WEEKS GESTATION OF SNOMED Code(s): 84513696 (2) Normal labor Current Visit: Yes Status: Acute Code(s): O80 - ENCOUNTER FOR FULL-TERM UNCOMPLICATED DELIVERY; Z37.9 - OUTCOME OF DELIVERY, UNSPECIFIED SNOMED Code(s): 53614771 (3) Group B streptococcal carriage complicating Current Visit: Yes Status: Acute Code(s): O99.820 - STREPTOCOCCUS B CARRIER STATE COMPLICATING SNOMED Code(s): 493538430890254
[2020-03-04 08:07] LABS: Basophils % (A) 0 %; Eosinophils # (A) 0.1 k/uL (0-0.7); Eosinophils % (A) 0 %; HCT 38.8 % (34.0-46.0); HGB 13.1 gm/dL (11.4-16.0); Lymphocytes # (A) 1.3 k/uL (1.0-4.8); Lymphocytes % (A) 8 %; MCH 32.6 pg (25.0-35.0); MCHC 33.7 g/dL (31.0-37.0); MCV 96.6 fL (80.0-100.0); Monocytes # (A) 0.7 k/uL (0-1.0); Monocytes % (A) 4 %; Neutrophils # (A) 14.5 k/uL (1.3-7.7); Neutrophils % (A) 87 %; Platelet Count 147 k/uL (150-450); RBC 4.01 m/uL (3.80-5.40); RDW 12.4 % (11.5-15.5); WBC 16.7 k/uL (3.8-10.6)
[2020-03-04] MEDS: SENNOSIDES-DOCUSATE SODIUM 1 EACH TAB PO SCH ×2 (08:36→20:05)
[2020-03-04] MEDS: IBUPROFEN 600 MG TAB PO PRN ×2 (15:51→21:42)
[2020-03-05] MEDS: SENNOSIDES-DOCUSATE SODIUM 1 EACH TAB PO SCH (07:56)
[2020-03-05 08:25] VITALS: TEMP 98
--- NOTE | 2020-03-05 08:46 | P.DS ---
Providers Date of admission: 03/03/20 19:47 Expected date of discharge: 03/05/20 Attending physician: Luke Barkley Primary care physician: Stated None Hospital Course: Elise is doing very well day 2. She is ambulating, voiding and tolerating her diet. She voices no complaints. Baby is in special care nursery will not be discharged but she is stable for discharge this time. Discharge instructions were thoroughly reviewed and all questions were answered for her prior to her discharge. On physical exam vital signs again are stable and afebrile. Heart regular, lungs clear, extremities without pain. Abdomen is soft uterus is firm and lochia is reported to be light. Assessment day 2. Plan discharged home follow up with me in 6 weeks Patient Condition at Discharge: Good Plan - Discharge Summary New Discharge Prescriptions: No Action Pnv No.95/Ferrous Fum/Folic AC [ Multivitamin Tablet] 1 each PO DAILY Discharge Medication List Pnv No.95/Ferrous Fum/Folic AC [ Multivitamin Tablet] 1 each PO DAILY 03/02/20 [History] Follow up Appointment(s)/Referral(s): Luke Barkley DO [Doctor of Osteopathic Medicine] - 1 Week Activity/Diet/Wound Care/Special Instructions: No heavy lifting, limit stairs and driving, and pelvic rest. If any high t emperatures, heavy bleeding, or severe pain call my office Discharge Disposition: HOME SELF-CARE
[2020-03-05 16:40] VITALS: BP 132/81; PULSE 78
== END 2020-03-05 19:27 | disposition home or self-care (01) | DRG 807 ==
LOC: FBPOP 19:40 → 4FBP 19:47
PROVIDERS: ADMIT Obstetrics & Gynecology; ATTEND Obstetrics & Gynecology
PROC: 10E0XZZ Delivery of Products of Conception, External Approach (ICD-10-PCS; principal; 2020-03-03)
DX: O99.824 Streptococcus B carrier state complicating childbirth (principal); Z37.0 Single live birth; O99.89 Other specified diseases and conditions complicating pregnancy, childbirth and the puerperium; H91.92 Unspecified hearing loss, left ear; Z3A.38 38 weeks gestation of pregnancy; Z88.0 Allergy status to penicillin; Z80.3 Family history of malignant neoplasm of breast; Z82.49 Family history of ischemic heart disease and other diseases of the circulatory system
CPT/HCPCS: 59025; 85025; 86850; 86900; 86901; 88307; 90707; 96360; 99213

== ENCOUNTER → 2021-02-26 | Outpatient (CLI) | payer OTHER ==
[2021-02-26 23:36] LABS: Basophils # (A) 0.03 X 10*3/uL (0.00-0.10); Basophils % (A) 0.6 %; Eosinophils # (A) 0.17 X 10*3/uL (0.04-0.35); Eosinophils % (A) 3.2 %; HCT 42.4 % (37.2-46.3); HGB 14.3 g/dL (12.0-15.0); Lymphocytes % (A) 42.8 %; MCH 32.2 pg (27.0-32.0); MCHC 33.7 g/dL (32.0-37.0); MCV 95.5 fL (80.0-97.0); Mean Platelet Volume 11.6 fL (9.5-12.2); Monocytes # (A) 0.33 X 10*3/uL (0.20-1.00); Monocytes % (A) 6.1 %; Neutrophils # (A) 2.53 X 10*3/uL (1.80-7.70); Neutrophils % (A) 47.1 %; Platelet Count 242 X 10*3/uL (140-440); RBC 4.44 X 10*6/uL (4.10-5.20); WBC 5.37 X 10*3/uL (4.50-10.00)
[2021-02-27 00:40] LABS: Erythrocyte Sedimentation Rate 4 mm/Hr (0-20)
[2021-02-27 06:25] LABS: Hepatitis B Core IgM Non-Reactive (Non-Reactive); Hepatitis B Surface Antigen Non-Reactive (Non-Reactive); Hepatitis C IgG Antibody Non-Reactive (Non-Reactive)
[2021-02-27 06:39] LABS: ALT 13 U/L (8-44); AST 12 U/L (13-35); African American GFR (CKD) 129.2 (60.0-200.0); Albumin/Globulin Ratio 1.63 (1.60-3.17); Alkaline Phosphatase 141 U/L (41-126); BUN/Creat Ratio 15.71 Ratio (12.00-20.00); C Reactive Protein <0.4 mg/dL (0.0-0.8); Calcium 9.4 mg/dL (8.7-10.3); Carbon Dioxide 27.1 mmol/L (21.6-31.8); Chloride 107 mmol/L (96-109); Chol/HDL Ratio 2.62; Cholesterol 131 mg/dL (0-200); Creatine Kinase 48 U/L (26-186); Globulin 2.7 g/dL (1.6-3.3); Glucose 117 mg/dL (70-110); Non-African American GFR(CKD) 111.5 (60.0-200.0); Potassium 4.4 mmol/L (3.5-5.5); Sodium 143 mmol/L (135-145); Total Bilirubin 0.7 mg/dL (0.3-1.2); Total Protein 7.1 g/dL (6.2-8.2); Triglycerides <50.0 mg/dL (0.0-149.0)
== END | disposition home or self-care (01) ==
LOC: LABWHC1 13:21
PROVIDERS: ATTEND Internal Medicine
DX: Z00.00 Encounter for general adult medical examination without abnormal findings (principal); I10 Essential (primary) hypertension; E78.5 Hyperlipidemia, unspecified; E03.9 Hypothyroidism, unspecified; E55.9 Vitamin D deficiency, unspecified; E66.9 Obesity, unspecified
CPT/HCPCS: 36415; 80053; 80061; 80074; 82306; 82550; 84439; 84443; 85025; 85652; 86140

== ENCOUNTER → 2022-07-04 | Outpatient (CLI) | payer BC ==
[2022-07-04 14:41] LABS: Basophils # (A) 0.03 X 10*3/uL (0.00-0.10); Basophils % (A) 0.5 %; Eosinophils # (A) 0.24 X 10*3/uL (0.04-0.35); Eosinophils % (A) 4.2 %; HCT 44.4 % (37.2-46.3); HGB 14.9 g/dL (12.0-15.0); Immature Grans, Automated 0.2 %; Lymphocytes # (A) 2.35 X 10*3/uL (0.90-5.00); Lymphocytes % (A) 41.3 %; MCH 30.9 pg (27.0-32.0); MCHC 33.6 g/dL (32.0-37.0); MCV 92.1 fL (80.0-97.0); Mean Platelet Volume 10.9 fL (9.5-12.2); Monocytes # (A) 0.37 X 10*3/uL (0.20-1.00); Monocytes % (A) 6.5 %; NRBC Per 100 WBC 0 /100 WBCS (0.0-0.0); Neutrophils # (A) 2.69 X 10*3/uL (1.80-7.70); Neutrophils % (A) 47.3 %; Platelet Count 220 X 10*3/uL (140-440); RBC 4.82 X 10*6/uL (4.10-5.20); RDW 11.7 % (11.5-14.5); WBC 5.69 X 10*3/uL (4.50-10.00)
[2022-07-04 15:06] LABS: ALT 18 U/L (8-44); AST 13 U/L (13-35); Albumin 3.5 g/dL (3.8-4.9); Albumin/Globulin Ratio 2.06 (1.60-3.17); Alkaline Phosphatase 69 U/L (41-126); C Reactive Protein <0.30 mg/dL (0.00-0.80); Calcium 8.4 mg/dL (8.7-10.3); Carbon Dioxide 25.7 mmol/L (20.0-27.5); Chloride 108 mmol/L (96-109); Creatine Kinase 147 U/L (26-186); Globulin 1.7 g/dL (1.6-3.3); Glucose 98 mg/dL (70-110); Non-African American GFR(CKD) 116.4 (60.0-200.0); Phosphorus 3.2 mg/dL (2.4-5.1); Potassium 4.7 mmol/L (3.5-5.5); Sodium 140 mmol/L (135-145); Total Protein 5.2 g/dL (6.2-8.2)
[2022-07-04 15:18] LABS: Chol/HDL Ratio 3.16 Ratio; VLDL Calculation 13.28 mg/dL (5.00-40.00)
[2022-07-04 15:31] LABS: Erythrocyte Sedimentation Rate 1 mm/Hr (0-20)
[2022-07-04 18:46] LABS: Appearance,Urine Clear (Clear); Bilirubin,Urine Negative (Negative); Blood,Urine Large (Negative); Color,Urine Yellow (Yellow); Ketones,Urine Negative (Negative); Nitrite,Urine Negative (Negative); PH, Urine 6.5 (5.0-8.0); Specific Gravity,Urine 1.023 (1.001-1.030)
[2022-07-04 19:04] LABS: Bacteria,Urine 1+ /HPF (None Seen); Yeast (UA) Present /LPF (None Seen)
== END | disposition home or self-care (01) ==
LOC: LABWHC1 09:41
PROVIDERS: ATTEND Internal Medicine
DX: I10 Essential (primary) hypertension (principal); E87.8 Other disorders of electrolyte and fluid balance, not elsewhere classified; E78.5 Hyperlipidemia, unspecified; N39.0 Urinary tract infection, site not specified; E66.9 Obesity, unspecified; E55.9 Vitamin D deficiency, unspecified
CPT/HCPCS: 36415; 80053; 80061; 81001; 82306; 82550; 83735; 84100; 84443; 85025; 85652; 86140; 87086

== ENCOUNTER 2022-12-03 17:06 | Emergency (ER) | payer BC, OTHER ==
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
[2022-12-03] MEDS ORDERED: MECLIZINE 12.5 MG TAB PO STA (18:19)
[2022-12-03] MEDS ORDERED: diphenhydrAMINE 25 MG CAP PO STA (18:19)
[2022-12-03] MEDS ORDERED: ONDANSETRON ODT 4 MG TAB PO STA (18:20)
[2022-12-03] MEDS ORDERED: ONDANSETRON 4 MG ODT STARTER PACK 2 TAB BTL PO STA (18:20)
--- NOTE | 2022-12-03 18:25 | CT ---
EXAMINATION TYPE: CT brain wo con CT DLP: 1094.4 mGycm, Automated exposure control for dose reduction was used. DATE OF EXAM: 12/03/2022 6:21 PM COMPARISON: None. CLINICAL INDICATION:Female, 37 years old with history of dizzy, syncope TECHNIQUE: Brain: Axial CT images of the brain were obtained with coronal and sagittal reformats created and rev iewed. Contrast used: None. Oral contrast used: None. FINDINGS: Brain: Extra-axial spaces: No abnormal extra-axial fluid collections. Ventricular system: Within normal limits Cerebral parenchyma: No acute intraparenchymal hemorrhage or mass effect. The melgoza-white junction is well differentiated. Cerebellum: Unremarkable. Mass effect: No evidence of midline shift. Intracranial vasculature: unremarkable Soft tissues: Normal. Calvarium/osseous structures: No depressed skull fracture. Paranasal sinuses and mastoid air cells: Mild scattered paranasal sinus disease. Visualized orbits: Orbital contents are intact. IMPRESSION: No acute intracranial process.
[2022-12-03 19:07] VITALS: BP 147/99; PULSE 79; RESP 18; TEMP 97.8
== END 2022-12-03 19:07 | disposition home or self-care (01) ==
LOC: EC 17:06
DX: H81.10 Benign paroxysmal vertigo, unspecified ear (principal); Z88.0 Allergy status to penicillin
CPT/HCPCS: 99284; 70450; S0119

== ENCOUNTER 2023-07-29 16:48 | Emergency (ER) | payer OTHER, BC ==
[2023-07-29] MEDS ORDERED: KETOROLAC 15 MG/ML 1 ML VIAL IM STA (18:33)
--- NOTE | 2023-07-29 20:53 | XR ---
EXAMINATION TYPE: XR wrist complete RT DATE OF EXAM: 07/29/2023 CLINICAL HISTORY: pain TECHNIQUE: Frontal, lateral and oblique images of the right wrist are obtained. COMPARISON: None. FINDINGS: Bony fragmentation on the lateral view felt to reflect a triquetral fracture. Correlate clinically wi th point tenderness. Joint spaces appear within normal limits. Soft tissue swelling noted. IMPRESSION: Bony fragmentation on the lateral view felt to reflect a triquetral fracture. Correlate clinically wi th point tenderness.
--- NOTE | 2023-07-29 21:17 | ED ---
General Adult HPI - General Chief complaint: Fall Stated complaint: IHS, R Arm Injury Time Seen by Provider: 07/29/23 18:14 Source: patient, RN notes reviewed Mode of arrival: ambulatory Limitations: no limitations - History of Present Illness Initial comments: 38-year-old presents emergency Department for evaluation of right wrist injury. 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 She states that she landed on her knees and then fell forward catching herself with her right hand. Patient has been ambulatory since the injury but reports pain in her right wrist. Patient has full range of motion at the wrist but it is painful. sHe denies numbness, tingling. - Related Data Home Medications Medication Instructions Recorded Confirmed lisinopriL [Zestril] 10 mg PO DAILY 12/03/22 12/03/22 Previous Rx's Medication Instructions Recorded Ondansetron [Zofran] 4 mg PO Q8HR PRN #30 tab 12/03/22 Allergies Allergy/AdvReac Type Severity Reaction Status Date / Time amoxicillin Allergy Rash/Hives Verified 12/03/22 17:56 Penicillins Allergy Rash/Hives Verified 12/03/22 17:56 Review of Systems ROS Statement: Those systems with pertinent positive or pertinent negative responses have been documented in the HPI. ROS Other: All systems not noted in ROS Statement are negative. 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 History of Any Multi-Drug Resistant Organisms: None Reported Additional Past Surgical History / Comment(s): D&C; patient LEEP done of the cervix Past Anesthesia/Blood Transfusion Reactions: No Reported Reaction Past Psychological History: No Psychological Hx Reported Smoking Status: Never smoker Past Alcohol Use History: None Reported Past Drug Use History: None Reported - Past Family History Mother Family Medical History: Cancer, Hypertension Additional Family Medical History / Comment(s): breast ca Father Family Medical History: Hypertension General Exam Limitations: no limitations General appearance: alert, in no apparent distress Head exam: Present: atraumatic, normocephalic, normal inspection Eye exam: Present: normal appearance, PERRL, EOMI. Absent: scleral icterus, conjunctival injection, periorbital swelling ENT exam: Present: normal exam, mucous membranes moist Neck exam: Present: normal inspection. Absent: tenderness, meningismus, lymphadenopathy Respiratory exam: Present: normal lung sounds bilaterally. Absent: respiratory distress, wheezes, rales, rhonchi, stridor Cardiovascular Exam: Present: regular rate, normal rhythm, normal heart sounds. Absent: systolic murmur, diastolic murmur, rubs, gallop, clicks Extremities exam: Present: tenderness (Anatomical snuffbox tenderness), normal capillary refill, other (Radial pulses 2+, swelling to the dorsal aspect of the right hand). Absent: full ROM Neurological exam: Present: alert, oriented X3 Psychiatric exam: Present: normal affect, normal mood Skin exam: Present: warm, dry, intact, normal color. Absent: rash Course Vital Signs 07/29/23 07/29/23 17:16 21:35 Temperature 98.3 F 98.2 F Pulse Rate 80 78 Respiratory 19 16 Rate Blood Pressure 200/113 178/92 O2 Sat by Pulse 100 99 Oximetry Procedures - Orthopedic Splinting/Casting Injury #1 Side: right Upper Extremity Injury Location: hand Upper Extremity Immobilizer: wrist splint Medical Decision Making - Medical Decision Making Was pt. sent in by a medical professional or institution (, PA, FIELD SALES AGENT, urgent care, hospital, or snf...) When possible be specific @ -No Did you speak to anyone other than the patient for history (EMS, parent, family, police, friend...)? What history was obtained from this source @ -No Did you review nursing and triage notes (agree or disagree)? Why? @ -I reviewed and agree with nursing and triage notes Were old charts reviewed (outside hosp., previous admission, EMS record, old EKG, old radiological studies, urgent care reports/EKG's, snf records)? Report findings @ -No old charts were reviewed Differential Diagnosis (chest pain, altered mental status, abdominal pain women, abdominal pain men, vaginal bleeding, weakness, fever, dyspnea, syncope, headache, dizziness, GI bleed, back pain, seizure, CVA, palpatations, mental health, musculoskeletal)? @ -Differential Musculoskeletal Muscular strain, contusion, ligament sprain, fracture, arthritis, septic arthritis, bursitis, cellulitis, muscle spasm, nerve compression, DVT, arterial occlusion, herpes zoster, electrolyte abnormality, tumor.... This is not meant to be in all inclusive list EKG interpreted by me (3pts min.). @ -None X-rays interpreted by me (1pt min.). @ -XR the right wrist shows bony fragmentation on the lateral view likely a triquetral fracture CT interpreted by me (1pt min.). @ -None done U/S interpreted by me (1pt. min.). @ -None done What testing was considered but not performed or refused? (CT, X-rays, U/S, labs)? Why? @ -None What meds were considered but not given or refused? Why? @ -None Did you discuss the management of the patient with other professionals (professionals i.e. Dr., PA, FIELD SALES AGENT, lab, RT, psych nurse, director social welfare, stationary equipment mechanic, teacher, security vehicle patrol officer, manager rn case)? Give summary @ -No Was smoking cessation discussed for >3mins.? @ -No Was critical care preformed (if so, how long)? @ -No Were there social determinants of health that impacted care today? How? (Homelessness, low income, unemployed, alcoholism, drug addiction, transportation, low edu. Level, literacy, decrease access to med. care, skilled nursing, rehab)? @ -No Was there de-escalation of care discussed even if they declined (Discuss DNR or withdrawal of care, Hospice)? DNR status @ -No What co-morbidities impacted this encounter? (DM, HTN, Smoking, COPD, CAD, Cancer, CVA, ARF, Chemo, Hep., AIDS, mental health diagnosis, sleep apnea, morbid obesity)? @ -None Was patient admitted / discharged? Hospital course, mention meds given and route , prescriptions, significant lab abnormalities, going to OR and other pertinent info. @ -Discharge. Patient presented to the emergency department for evaluation of right wrist injury after fall. X-rays obtained which show a possible triquetral fracture. Patient was placed in a short arm splint and advised to follow-up with orthopedics. Advised to rest, ice, elevation and anti-inflammatory medications. Patient understands and agreeable with plan. Patient stable at time of discharge. Case discussed with Dr. Day Undiagnosed new problem with uncertain prognosis? @ -No Drug Therapy requiring intensive monitoring for toxicity (Heparin, Nitro, Insulin, Cardizem)? @ -No Were any procedures done? @ -No Diagnosis/symptom? @ -hand fracture Acute, or Chronic, or Acute on Chronic? @ -acute Uncomplicated (without systemic symptoms) or Complicated (systemic symptoms)? @ -uncomplicated Side effects of treatment? @ -No Exacerbation, Progression, or Severe Exacerbation? @ -No Poses a threat to life or bodily function? How? (Chest pain, [place], [place], pneumonia, PE, COPD, DKA, ARF, appy, cholecystitis, CVA, Diverticulitis, Homicidal, Suicidal, threat to staff... and all critical care pts) @ -No Disposition Clinical Impression: Triquetral fracture, Fall Disposition: HOME SELF-CARE Condition: Stable Instructions (If sedation given, give patient instructions): Hand Fracture (ED) Additional Instructions: Please follow up with your primary care provider and orthopedics. Rest, ice, elevate the hand. Alternate Tylenol and Motrin as needed for pain. Return to the emergency department for new or worsening symptoms. Is patient prescribed a controlled substance at d/c from ED?: No Referrals: None,Stated [Primary Care Provider] - 1-2 days Yonas Alex DO [Doctor of Osteopathic Medicine] - 1-2 days
[2023-07-30 01:10] VITALS: BP 178/92; PULSE 78; RESP 16; TEMP 98.2
== END 2023-07-29 21:35 | disposition home or self-care (01) ==
LOC: EC 16:48
DX: S62.112B Displaced fracture of triquetrum [cuneiform] bone, left wrist, initial encounter for open fracture (principal); Z88.0 Allergy status to penicillin; W18.30XA Fall on same level, unspecified, initial encounter
CPT/HCPCS: 73110; 99283; 96372; J1885